=== PATIENT | female | born 1975 | race African-American/Black ===

== ENCOUNTER 2019-12-18 23:25 | Emergency (ER) | payer BC ==
[~2019-12-18] VITALS: Ht 160 cm; Wt 99.8 kg
[2019-12-18] MEDS ORDERED: IBU600 MG PO (23:41)
[2019-12-18] MEDS ORDERED: CYCL10 PO (23:41)
[2019-12-18] MEDS ORDERED: LIDO700A20 TOP (23:41)
== END 2019-12-19 00:23 | disposition home or self-care (01) ==
LOC: ER 23:25
DX: M54.42 Lumbago with sciatica, left side (principal); Z79.899 Other long term (current) drug therapy
CPT/HCPCS: 96372; 99283; A9270-GY; J1885